=== PATIENT | male | born 1975 | race Caucasian/White ===

== ENCOUNTER 2022-02-17 10:42 | Emergency (ER) | payer OTHER, SELFPAY ==
[2022-02-17 10:50] VITALS: BP 176/106; PULSE 100; RESP 20; TEMP 36.2; O2SAT 98
[2022-02-17 11:00] VITALS: BP 176/106; PULSE 100; RESP 20; TEMP 36.2; O2SAT 98
--- NOTE | 2022-02-17 14:31 | ED.SKABFB ---
HPI - Skin/Abscess/Foreign Bdy General Chief complaint: Skin/Abscess/Foreign Body Stated complaint: Poison Sofie Time Seen by Provider: 02/17/22 10:55 Source: patient Mode of arrival: ambulatory Limitations: no limitations History of Present Illness HPI narrative: 47 yo F presents with poison sofie rash to 1 wk. Taking benadryl to treat itching and a poison sofie shower scrub. Not getting any better. continues to spread. Today rash to L wrist broke open and weeping . c/o pain to L wrist. No other complaints today. All systems reviewed and negative except as noted above. Related Data Allergies Allergy/AdvReac Type Severity Reaction Status Date / Time [id number]-POV-[id number] Reductase Allergy Unknown myalgias Verified 02/17/22 10:57 Inhibitor [Pxskany-Yaz-Gdm Reductase Inhibitor] Review of Systems Review of Systems: CONSTITUTIONAL: Denies fever, chills, or sweats. EYES: Denies visual changes, redness, or discharge. ENT: Denies rhinorrhea, congestion, sore throat, or otalgia. CARDIOVASCULAR: Denies chest pain, palpitations, or edema. RESPIRATORY: Denies cough or dyspnea. GASTROINTESTINAL: Denies abdominal pain, nausea, vomiting, or diarrhea. GENITOURINARY: Denies dysuria or hematuria. SKIN: Reports itchy poison sofie rash. MUSCULOSKELETAL: Denies back pain, joint pain, or myalgia. NEUROLOGIC: Denies headache, numbness, or weakness. PSYCHIATRIC: Denies anxiety or depression. All other systems reviewed are negative, except as documented in HPI. [facility] Past Medical History Medical History Benign essential HTN Elevated fasting glucose Gluten intolerance Mixed hyperlipidemia Morbid (severe) obesity due to excess calories Surgical History Surgical History Hx of cataract surgery 2014 Family History Family History Grandparent Family history of malignant neoplasm Family history of heart disease in male family member before age 55 Mother , Heart Attack @ age 67 Heart attack Barretts esophagus Hypertension Father , 1 year after heart transplant Heart attack Heart transplant complication Social History Social History (Updated 06/25/20 @ 09:55 by Shawna Sanders) Social History: Smoking status: Never smoker Second hand tobacco smoke exposure: No Alcohol intake: never Alcohol use details: 3 times a year Substance use: never Substance use type: does not use Gender identity (if verbalized by the patient): Male Sexual Orientation (if Verbalized by the Patient): Straight or Heterosexual Comments At time of signature, agree with nursing past medical, surgical, social and family history. There is no relevant family history pertinent to the presenting complaint. Exam Narrative: GENERAL: This is a well-nourished, well-developed patient, in no apparent distress. HEAD: normocephalic, atraumatic. EYES: PERRL. Sclera clear/white. Vision is grossly intact. EARS: External ears normal NOSE: External nose normal NECK: Neck supple, non-tender without lymphadenopathy, masses or thyromegaly. CARDIOVASCULAR: Regular rate and rhythm without murmurs, gallops, or rubs. RESPIRATORY: Clear to auscultation. Breath sounds equal bilaterally. No wheezes, rales, or rhonchi. SKIN: warm, Dry, intact with no suspicious lesions, good texture and turgor. erythematous vesicular rasied rash to L wrist, R forearm, R ABD. Rash to L wrist is erythematous, tender on palpation, swollen concerning for cellulitis. NEURO: awake, alert, and oriented to person, place and time. There were no obvious focal neurologic abnormalities. EXTREMITIES: No joint tenderness, effusion, or edema noted. Course Course Level of Care: Express Care Visit Vital Signs Vital signs: Vital Signs Temperature 36.2 C L 02/17/22 10:50 Pulse Rate 100
== END 2022-02-17 11:05 | disposition home or self-care (01) ==
PROVIDERS: Emergency Provider Nurse Practitioner Family
DX: L25.5 Unspecified contact dermatitis due to plants, except food (principal); L03.114 Cellulitis of left upper limb; I10 Essential (primary) hypertension; E78.2 Mixed hyperlipidemia; E66.01 Morbid (severe) obesity due to excess calories; Z68.41 Body mass index [BMI] 40.0-44.9, adult
CPT/HCPCS: 99213; G0463